=== PATIENT | male | born 1955 | race Caucasian/White ===

== ENCOUNTER → 2023-03-29 | Emergency (ER) | payer OTHER ==
[~2023-03-29] MED LIST: KETOROLAC 30 MG/ML INJ ONE; dexAMETHasone 10 MG/ML VIAL ONE
--- NOTE | 2023-03-29 16:21 | RAD REPORT ---
EXAM DESCRIPTION: RAD - Hip Left 2 View - 03/29/2023 3:57 pm CLINICAL HISTORY: PAIN COMPARISON: <Comparisons> TECHNIQUE: Left hip, AP and frogleg views of the left hip. FINDINGS: There is no fracture or dislocation. No acute or destructive bony process seen. IMPRESSION: No acute findings of the left hip.
--- NOTE | 2023-03-29 16:32 | ER ---
Nurse's Notes [facility] Name: Te Aguirre Age: 67 yrs Sex: Male : 1955 Arrival Date: 03/29/2023 Time: 14:35 Bed DX4 Private MD: Diagnosis: Pain in left hip Presentation: 03/29 14:41 Chief complaint: Patient states: bilateral leg pain, hx of sciatica, buttocks pain. ko1 Started with legs about 6 months ago and the buttocks started about a month ago at least. Coronavirus screen: At this time, the client does not indicate any symptoms associated with coronavirus-19. Ebola Screen: No symptoms or risks identified at this time. Initial Sepsis Screen: Does the patient meet any 2 criteria? No. Patient's initial sepsis screen is negative. Does the patient have a suspected source of infection? No. Patient's initial sepsis screen is negative. Risk Assessment: Do you want to hurt yourself or someone else? Patient reports no desire to harm self or others. Onset of symptoms is unknown. 14:41 Method Of Arrival: Wheelchair ko1 14:41 Acuity: STEVEN 4 ko1 Triage Assessment: 14:44 General: Appears in no apparent distress. uncomfortable, Behavior is calm, cooperative, ko1 appropriate for age. Pain: Complains of pain in buttocks, right leg and left leg. GI: Reports diarrhea. Historical: - Allergies: 14:44 No Known Allergies; ko1 - PMHx: 14:44 Hypertensive disorder; ko1 - Immunization history:: Adult Immunizations up to date. - Social history:: Smoking status: Patient reports the use of cigarette tobacco products, smokes one-half pack cigarettes per day, Patient uses alcohol, on a daily basis. patient/guardian reports chronic longstanding heavy alcohol consumption. Screenin:46 [facility] [place] ED Fall Risk Assessment (Adult) History of falling in the last 3 months, ap3 including since admission No falls in past 3 months (0 pts) Confusion or Disorientation No (0 pts) Intoxicated or Sedated No (0 pts) Impaired Gait No (0 pts) Mobility Assist Device Used Yes (1 pt) Altered Elimination No (0 pt). Abuse screen: Denies threats or abuse. Nutritional screening: No deficits noted. Tuberculosis screening: No symptoms or risk factors identified. Vital Signs: 14:41 BP 134 / 80; Pulse 104; Resp 16; Temp 98.1; Pulse Ox 97% ; ko1 ED Course: 14:38 Patient arrived in ED. im 14:40 Marta Alvares FNP-C is [facility]. kb 14:40 Calvin Neves DO is Attending Physician. kb 14:44 Triage completed. ko1 14:44 Arm band placed on right wrist. Patient placed in the treatment room, on pulse ko1 oximetry, Patient notified of wait time. 15:57 Hip Left 2 View XRAY In Process Unspecified. EDMS 16:46 Provided Education on: discharge instructions. ap3 16:46 Patient has correct armband on for positive identification. ap3 16:46 No provider procedures requiring assistance completed. Patient did not have IV access ap3 during this emergency room visit. Administered Medications: 15:03 Drug: Dexamethasone IM 10 mg IM once Route: IM; Site: left deltoid; ko1 15:04 Drug: Ketorolac IM 30 mg IM once Route: IM; Site: right deltoid; ko1 Medication: 16:46 VIS not applicable for this client. ap3 Outcome: 16:31 Discharge ordered by MD. kb 16:46 Discharged to home with family, ap3 16:46 Condition: good 16:46 Discharge instructions given to patient, Instructed on discharge instructions, follow up and referral plans. medication usage, Demonstrated understanding of instructions, follow-up care, medications, Prescriptions given X 2, 16:47 Patient left the ED. ap3 Signatures: Dispatcher [employer] EDPA Marta Alvares FNP-C FNP-Ckb Prokisch, Amanda, RN RN ap3 Yulisa Orozco RN RN ko1 Cherelle Méndez im
--- NOTE | 2023-03-29 16:32 | EDPHYS ---
Physician Documentation [facility] [place], [place] Name: Te Aguirre Age: 67 yrs Sex: Male : 1955 Arrival Date: 03/29/2023 Time: 14:35 Bed DX4 Private MD: ED Physician Calvin Neves HPI: 03/29 16:26 This 67 yrs old Male presents to ER via Wheelchair with complaints of Leg Pain - Both kb legs, Diarrhea. 16:26 Pt is a 67 year old male who presents with left hip pain that started 1.5 months ago kb while putting a grill together. States he felt like it came out of socket. Reports he hasn't been able to walk well since then. antiinflammatories have been helping. Also reports history of sciatica and herniated disc. Historical: - Allergies: 14:44 No Known Allergies; ko1 - PMHx: 14:44 Hypertensive disorder; ko1 - Immunization history:: Adult Immunizations up to date. - Social history:: Smoking status: Patient reports the use of cigarette tobacco products, smokes one-half pack cigarettes per day, Patient uses alcohol, on a daily basis. patient/guardian reports chronic longstanding heavy alcohol consumption. ROS: 16:24 Constitutional: Negative for fever, chills, and weight loss, kb 16:24 Back: Positive for of the low back area, 16:24 MS/extremity: Positive for pain, of the left hip, 16:24 All other systems are negative, Exam: 16:25 Constitutional: This is a well developed, well nourished patient who is awake, alert, kb and in no acute distress. Head/Face: Normocephalic, atraumatic. ENT: Moist Mucous membranes Cardiovascular: Regular rate Respiratory: Respirations even and unlabored. No increased work of breathing. Talking in full sentences Abdomen/GI: Soft, non-tender. No distention Back: No spinal tenderness. No costovertebral tenderness. Full range of motion. Skin: Warm, dry with normal turgor. Normal color. MS/ Extremity: Pulses equal, no cyanosis. Neurovascular intact. Full, normal range of motion. Neuro: Awake and alert, GCS 15, oriented to person, place, time, and situation. Moves all extremities. Normal gait. Vital Signs: 14:41 BP 134 / 80; Pulse 104; Resp 16; Temp 98.1; Pulse Ox 97% ; ko1 MDM: 14:40 Patient medically screened. kb 16:26 Differential diagnosis: dislocation, closed fracture, contusion, tendonitis, strain. kb Data reviewed: vital signs, nurses notes. Counseling: I had a detailed discussion with the patient and/or guardian regarding the historical points, exam findings, and any diagnostic results supporting the discharge/admit diagnosis, radiology results, the need for outpatient follow up, a family practitioner, a orthopedic surgeon, to return to the emergency department if symptoms worsen or persist or if there are any questions or concerns that arise at home. 03/29 14:50 Order name: Hip Left 2 View XRAY; Complete Time: 16:22 kb Administered Medications: 15:03 Drug: Dexamethasone IM 10 mg IM once Route: IM; Site: left deltoid; ko1 15:04 Drug: Ketorolac IM 30 mg IM once Route: IM; Site: right deltoid; ko1 Disposition: 18:07 I was immediately available on-site in the Emergency Department for consultation in the ms3 care of the patient. Disposition Summary: 03/29/23 16:31 Discharge Ordered Notes: Location: Home kb Condition: Stable kb Diagnosis - Pain in left hip kb Followup: kb - With: Emergency Department - When: As needed - Reason: Worsening of condition Followup: kb - With: Private Physician - When: 2 - 3 days - Reason: Recheck today's complaints, Continuance of care, Re-evaluation by your physician Discharge Instructions: - Discharge Summary Sheet kb - Musculoskeletal Pain kb - Joint Pain, [id number] kb Forms: - Medication Reconciliation Form kb - Thank You Letter kb - Antibiotic Education kb - Prescription Opioid Use kb - Patient Portal Instructions kb - Leadership Thank You Letter kb Prescriptions: - Prednisone 20 mg Oral Tablet - take 1 tablet ORAL route once daily for 5 days; 5 tablet; Refills: 0, Product kb Selection Permitted - Cyclobenzaprine 10 mg Oral tablet - take 1 tablet ORAL route every 8 hours As needed; 21 tablet; Refills: 0, kb Product Selection Permitted Signatures: Dispatcher [employer] Marta Santos, Calvin Alfredo DO DO ms3 Yulisa Orozco RN RN ko1
[2023-03-31 00:07] VITALS: BP 134/80; TEMP 98.1; O2SAT 97
== END ==
LOC: ER 14:35
DX: M25.552 Pain in left hip (principal); M54.50 Low back pain, unspecified; I10 Essential (primary) hypertension; F17.210 Nicotine dependence, cigarettes, uncomplicated
CPT/HCPCS: 73502; J1100